=== PATIENT | male | born 1980 | race Caucasian/White ===

== ENCOUNTER 2021-08-13 22:07 | Emergency (ER) | payer BC ==
[~2021-08-13] VITALS: Ht 177.8 cm; Wt 85.3 kg
[2021-08-13 22:40] VITALS: BP 126/74
== END 2021-08-14 04:04 | disposition left against medical advice (07) ==
LOC: ER 22:07
DX: H57.12 Ocular pain, left eye (principal); Z53.21 Procedure and treatment not carried out due to patient leaving prior to being seen by health care provider